=== PATIENT | female | born 2000 | race Caucasian/White ===

== ENCOUNTER 2025-09-22 16:00 | Emergency (ER) | payer OTHER ==
[~2025-09-22] VITALS: Ht 170.2 cm; Wt 125.0 kg
[2025-09-22 17:39] LABS: BASO # 0.0 10^3/uL (0.0-0.2); BASO % 0.2 % (0.0-1.0); EOS # 0.1 10^3/uL (0.0-0.5); EOS % 0.5 % (0.0-3.0); LYMPH # 1.5 10^3/uL (1.5-5.0); LYMPH % 12.7 % (24.0-44.0); MONO # 0.9 10^3/uL (0.0-0.8); MONO % 7.0 % (2.0-8.0); NEUTROPHILS # 9.6 10^3/uL (1.5-8.5); NEUTROPHILS % 79.4 % (36.0-66.0); PLATELET COUNT, AUTOMATED 300 10^3/uL (150-450)
[2025-09-22] MEDS: diphenhydrAMINE 50 MG/ML VIAL IV STA (18:04)
[2025-09-22 18:14] LABS: ALT/SGPT 20 U/L (7.0-40); AST/SGOT 27 U/L (<34); CALCIUM LEVEL 9.1 MG/DL (8.5-10.1); CARBON DIOXIDE LEVEL 20 MMOL/L (20-31); CHLORIDE LEVEL 104 MMOL/L (98-107); CREATININE FOR GFR 0.46 MG/DL (0.55-1.30); GLOMERULAR FILTRATION RATE > 90.0 (>60); POTASSIUM SERUM 3.8 MMOL/L (3.5-5.1); SODIUM LEVEL 137 MMOL/L (136-145)
[2025-09-22 19:51] VITALS: TEMP 98.7
[2025-09-22 20:37] VITALS: BP 100/56; O2SAT 99
== END 2025-09-22 20:40 | disposition home or self-care (01) ==
LOC: M ED 16:00
DX: O20.8 Other hemorrhage in early pregnancy (principal); O34.81 Maternal care for other abnormalities of pelvic organs, first trimester; Z3A.01 Less than 8 weeks gestation of pregnancy
CPT/HCPCS: 76801; 80053; 84702; 85025; 86850; 86900; 86901; 93976; 96374; 99284; J1200